=== PATIENT | female | born 1945 | race Caucasian/White ===

== ENCOUNTER 2017-02-18 08:57 | Inpatient (IN) | payer OTHER ==
[2017-02-10 09:12] VITALS: BMI 32.0
--- NOTE | 2017-02-10 09:47 | PAT Medication Instructions ---
Service Date Feb 10, 2017. Current Home Medication List Doxycycline (Monohydrate) (Doxycycline), 100 MG PO BID Losartan Potassium (Losartan Potassium), 25 MG PO QAM Metformin Hcl (Glucophage), 1,000 MG PO 5PM Metformin Hcl (Glucophage), 500 MG PO QAM Omeprazole (Cvs Omeprazole), 20 MG PO QAM Pravastatin Sodium (Pravastatin Sodium), 1 TAB PO HS Tramadol (Ultram), 100 MG PO BID PRN for Pain Medication Instructions For Your Scheduled Surgery Doxycycline (Monohydrate) (Doxycycline), 100 MG PO BID (to completed prior to surgery) - Hold the following medications 48 hours prior to surgery: Metformin Hcl (Glucophage), 1,000 MG PO 5PM Metformin Hcl (Glucophage), 500 MG PO QAM - Hold the following medications the morning of surgery: Losartan Potassium (Losartan Potassium), 25 MG PO QAM - Take the following medications the morning of surgery with a sip of water: Tramadol (Ultram), 100 MG PO BID PRN for Pain (okay to take up to 4 hours prior to surgery if needed) Omeprazole (Cvs Omeprazole), 20 MG PO QAM - Take the following medications as scheduled the night before surgery: Tramadol (Ultram), 100 MG PO BID PRN for Pain (if needed) Pravastatin Sodium (Pravastatin Sodium), 1 TAB PO HS If you have any questions please call us at [phone] or [phone] or [phone]
[2017-02-10 10:50] LABS: BASO % 0.7 %; BASO ABS # 0.04 K/uL (0-0.2); COMPLETE YES; EOS % 1.8 %; HEMATOCRIT 40.9 % (37-47); IG% 0.2 %; LYMPH % 31.8 %; LYMPH ABS # 1.79 K/uL (1.2-3.4); MEAN CELL VOLUME 87.6 fL (80-100); MEAN CORPUSCULAR HEMOGLOBIN 28.5 pg (25-34); MEAN CORPUSCULAR HGB CONC 32.5 g/dl (32-36); MEAN PLATELET VOLUME 10.8 fL (7.4-10.4); MONO % 6.4 %; NEUT % 59.1 %; PLATELET COUNT 194 K/uL (130-400); RED BLOOD COUNT 4.67 M/uL (4.2-5.4); WHITE BLOOD COUNT 5.63 K/uL (4.8-10.8)
[2017-02-10 10:56] LABS: BUN/CREATININE RATIO 17.8 (10-20); CALCIUM 9.6 mg/dl (8.5-10.1); CREATININE 0.93 mg/dl (0.60-1.20); POTASSIUM 4.5 mmol/L (3.5-5.1)
[2017-02-10 11:03] LABS: PROTHROMBIN TIME (PATIENT) 10.7 SECONDS (9.0-12.0)
--- NOTE | 2017-02-10 11:12 | DIAGNOSTIC IMAGING REPORT ---
CHEST PREADMISSION(PA/LAT) CLINICAL HISTORY: Preoperative chest COMPARISON STUDY: May 2011 FINDINGS: The cardiac and mediastinal contours are normal. There is no evidence of focal pulmonary consolidation. There is no evidence of failure. No pleural effusions are visualized.[ IMPRESSION: No active disease in the chest. Electronically signed by: Reji Blunt M.D. 02/10/2017 11:11 AM Dictated Date/Time: 02/10/2017 11:10 AM
[2017-02-10 11:20] LABS: MANUAL MICROSCOPIC REQUIRED? YES; URINE APPEARANCE CLEAR (CLEAR); URINE BILIRUBIN NEG (NEG); URINE COLOR YELLOW; URINE NITRITE NEG (NEG); URINE PH 5.5 (4.5-7.5); UROBILINOGEN NEG (NEG)
[2017-02-10 11:22] LABS: REVIEW REQ? NO
[2017-02-10 11:39] LABS: URINE BACTERIA 1+ (NEG); URINE RBC 0-4 /hpf (0-4)
--- NOTE | 2017-02-17 15:50 | HISTORY & PHYSICAL EXAMINATION ---
DATE OF ADMISSION: 02/18/2017 CHIEF COMPLAINT: Rotator cuff arthropathy of the right shoulder. HISTORY OF PRESENT ILLNESS: Vanessa is a pleasant 71-year-old female whom I have been treating for rotator cuff arthropathy in both of her shoulders. I have given her multiple injections. The right one has been more symptomatic than the left. She has gotten to the point where the injections are no longer helping and her shoulder is becoming more symptomatic. It hurts her when she does any motions out away from her body and she is having trouble sleeping at night. After extensive discussions with her and her family, she has elected to proceed with a reverse right shoulder arthroplasty. PAST MEDICAL HISTORY: Significant for hypertension, hyperlipidemia, diabetes, osteoarthritis and obesity. MEDICATIONS: Include doxycycline 100 mg twice a day, losartan 25 mg daily, Glucophage 500 mg in the morning, and Glucophage 1000 mg in the evening, omeprazole 20 mg in the morning, pravastatin 40 mg at night, Ultram 100 mg twice a day as needed. PAST SURGICAL HISTORY: Significant for bilateral knee replacements by Dr. Schultz. ALLERGIES: None. FAMILY HISTORY: Noncontributory. SOCIAL HISTORY: She denies any tobacco, alcohol or IV drug use. REVIEW OF SYSTEMS: She complains of bilateral shoulder pain, right worse than left. All other pertinent review of systems are negative. PHYSICAL EXAMINATION: GENERAL: She is awake, alert and oriented x3. She is in no apparent distress. She is very pleasant. HEAD, EYES, EARS, NOSE, AND THROAT: Pupils are equal, round and reactive to light. Extraocular motion intact. Oral mucosa is pink and moist. HEART: Regular rate per radial pulse. LUNGS: Rin symmetrically bilaterally with no audible breath sounds. ABDOMEN: Soft, nontender, nondistended. MUSCULOSKELETAL: On physical examination of her right shoulder she has about 140 degrees of forward elevation and abduction. She has 3/5 muscle strength to full can testing and 4/5 muscle strength with external rotation. Negative bear hug and negative belly press test. She is tender to palpation over the anterior glenohumeral joint line and in the subacromial space. X-rays of the right shoulder do reveal superiorly migrated humeral head and advanced osteoarthritis. There is joint space narrowing and osteophyte formation. IMPRESSION: Rotator cuff arthropathy of the right shoulder. PLAN: Will proceed with a Biomet comprehensive reverse right shoulder arthroplasty. Postoperatively, she will be put in an arm sling and kept overnight for postoperative medical management.
[2017-02-18] VITALS (11 sets, daily range): BP systolic 118–162; BP diastolic 64–87; PULSE 49–63; TEMP 36.4–36.7; O2SAT 94–100; Ht 160 cm; Wt 83.6 kg
[~2017-02-18] VITALS: Ht 160 cm; Wt 83.6 kg
[2017-02-18] MEDS: TRANEXAMIC ACID INJ 1,000 MG in SODIUM CHLORIDE 0.9% 100ML 100 ML IV SCH ×2 (06:30→10:33)
[~2017-02-18 08:57] MED LIST: ACETAMINOPHEN 500 MG TAB PO SCH; CEFAZOLIN 2000 MG/60 ML D5W 60 ML IV SCH; CZR25 PO; DOXY-300 PO; FAMOTIDINE 20 MG TAB PO SCH; GABAPENTIN 300 MG CAP PO SCH; LACTATED RINGER'S 1000ML 1,000 ML IV SCH; LACTATED RINGER'S 1000ML IV SCH; METF-384 PO; OMEP20TA40 PO; PRAV40TA2 PO; ROPIVACAINE 5MG/ML 30 ML 150 MG, BUPIVACAINE/EPINEPHR 0.5% MPF 30 ML, KETOROLAC TROMETH... INFIL SCH; TRAM-10 PO
[2017-02-18] MEDS ORDERED: ROPIVACAINE 0.5% 5 MG/ML 30 ML VIAL ONE (09:07)
--- NOTE | 2017-02-18 09:20 | History & Physical Bridge Note ---
H&P Re-Evaluation Bridge Note: I have examined the patient, reviewed the History & Physical and in the interval since the performance of the History & Physical I have noted the following changes of clinical significance: No changes noted
[2017-02-18] MEDS ORDERED: ONDANSETRON INJ 2 MG/ML 2 ML VIAL IV PRN ×2 (09:45→13:15)
[2017-02-18] MEDS ORDERED: FENTANYL CITRATE INJ 50 MCG/1 ML 2 ML VIAL IV PRN (09:45)
[2017-02-18] MEDS ORDERED: PROMETHAZINE HCL INJ 12.5 MG in SODIUM CHLORIDE 0.9% 50ML 50 ML IV PRN (09:45)
[2017-02-18] MEDS ORDERED: ATROPINE SULFATE 0.1 MG/ML 5ML SYR IV PRN (09:45)
[2017-02-18] MEDS ORDERED: HYDROmorphone INJ 1 MG/ML SYR IV PRN (09:45)
[2017-02-18] MEDS ORDERED: EpHEDrine SULFATE INJ 50 MG/ML AMP IV PRN (09:45)
[2017-02-18] MEDS ORDERED: FENTANYL CITRATE INJ 50 MCG/1 ML 2 ML VIAL ONE (10:06)
[2017-02-18] MEDS ORDERED: MIDAZOLAM HCL 1 MG/ML 2ML VIAL ONE (10:06)
[2017-02-18] MEDS ORDERED: ORTHO JOINT ANESTHETIC ONE (10:40)
[2017-02-18] MEDS ORDERED: BACITRACIN 50000 UNIT VIAL ONE (10:40)
[2017-02-18] MEDS ORDERED: GLYCOPYRROLATE INJ 0.2 MG/ML VIAL ONE (12:02)
[2017-02-18] MEDS ORDERED: PROPOFOL IV EMULSION 10 MG/ML 20 ML VIAL IV ONE (12:02)
[2017-02-18] MEDS ORDERED: ROCURONIUM BROMIDE 10 MG/ML 5 ML VIAL ONE (12:02)
[2017-02-18] MEDS ORDERED: NEOSTIGMINE METHYLSULFATE 5 MG/5 ML SYR ONE (12:02)
[2017-02-18] MEDS ORDERED: DEXAMETHASONE SOD INJ 4 MG/ML VIAL ONE (12:16)
[2017-02-18] MEDS ORDERED: ONDANSETRON INJ 2 MG/ML 2 ML VIAL ONE (12:16)
[2017-02-18] MEDS ORDERED: PHARMACY GLYCEMIC MGMT CONSULT STA (13:14)
--- NOTE | 2017-02-18 13:14 | [facility] Post Operative Brief Note ---
Immediate Operative Summary Operative Date Feb 18, 2017. Pre-Operative Diagnosis Rotator cuff arthropathy of the right shoulder Post-Operative Diagnosis Rotator cuff arthropathy of the right shoulder Procedure(s) Performed Right Reverse Total Shoulder Arthroplasty Surgeon Dr. Celestin Hat Checker Surgeon(s) Torsten Puente PA-C Estimated Blood Loss 100 mL Findings as above Specimens A: Right Humeral Head Complication(s) None Disposition Recovery Room / PACU
[2017-02-18] MEDS ORDERED: MoRPHine SULFATE 2 MG/ML CARP IV PRN (13:15)
[2017-02-18] MEDS ORDERED: BISACODYL 10 MG SUPP PR PRN (13:15)
[2017-02-18] MEDS ORDERED: GLUCOSE 10 TABS/TUBE PO PRN (13:15)
[2017-02-18] MEDS ORDERED: NALOXONE HCL 0.4 MG/1 ML VIAL/CARP IV PRN (13:15)
[2017-02-18] MEDS ORDERED: METOCLOPRAMIDE HCL INJ 5 MG/ML 2 ML VIAL IV PRN (13:15)
[2017-02-18] MEDS ORDERED: DEXTROSE 50% 50 ML SYR IV PRN (13:15)
[2017-02-18] MEDS ORDERED: GLUCOSE 40% GEL 15 GM TUBE PO PRN (13:15)
[2017-02-18] MEDS ORDERED: GLUCAGON FOR INJ 1 MG VIAL SQ PRN (13:15)
[2017-02-18] MEDS ORDERED: MAGNESIUM HYDROXIDE SUSP 30 ML UDC PO PRN (13:15)
[2017-02-18] MEDS ORDERED: SOD PHOSPHATE/SOD BIPHOSPHATE ENEMA 132 ML BTL PR PRN (13:15)
--- NOTE | 2017-02-18 13:56 | DIAGNOSTIC IMAGING REPORT ---
RIGHT SHOULDER MIN 2 VIEWS ROUTINE CLINICAL HISTORY: Status post right shoulder surgery. COMPARISON: None FINDINGS: Alignment of the right shoulder arthroplasty is anatomic. There is no fracture or unexpected radiopaque foreign body. Surgical drain is in place. IMPRESSION: Expected findings following right shoulder arthroplasty Electronically signed by: Alphonse Benito M.D. 02/18/2017 1:55 PM Dictated Date/Time: 02/18/2017 1:54 PM
--- NOTE | 2017-02-18 13:57 | Anesthesiology Progress Note ---
Anesthesia Post Op Note Date & Time Feb 18, 2017 at 13:57 Vital Signs Pain Intensity: 0 Vital Signs Past 12 Hours Date Time Temp Pulse Resp B/P (MAP) Pulse Ox O2 Delivery O2 Flow Rate FiO2 02/18/17 13:48 50 14 02/18/17 13:48 50 14 100 02/18/17 13:46 156/63 02/18/17 13:43 52 14 100 02/18/17 13:43 52 14 02/18/17 13:42 149/55 02/18/17 13:38 53 13 100 02/18/17 13:38 53 13 02/18/17 13:37 53 13 02/18/17 13:37 53 13 100 02/18/17 13:37 53 13 02/18/17 13:37 53 13 100 02/18/17 13:36 148/63 02/18/17 13:36 148/63 02/18/17 13:32 51 17 145/56 100 02/18/17 13:32 52 17 02/18/17 13:32 52 17 02/18/17 13:32 51 17 145/56 100 02/18/17 13:27 51 13 02/18/17 13:27 51 13 02/18/17 13:27 51 13 100 02/18/17 13:27 51 13 100 02/18/17 13:26 155/67 02/18/17 13:26 155/67 02/18/17 13:23 146/53 02/18/17 13:23 146/53 02/18/17 13:22 54 14 99 02/18/17 13:22 36.0 52 14 146/53 100 Mask 10 02/18/17 13:22 54 14 02/18/17 13:22 54 14 99 02/18/17 13:22 54 14 02/18/17 09:36 36.6 60 16 148/87 99 Room Air Notes Mental Status: alert / awake / arousable, participated in evaluation Pt Amnestic to Procedure: Yes Nausea / Vomiting: adequately controlled Pain: adequately controlled Airway Patency, RR, SpO2: stable & adequate BP & HR: stable & adequate Hydration State: stable & adequate Anesthetic Complications: no major complications apparent
[2017-02-18] MEDS ORDERED: PHARMACY GLYCEMIC MGMT CONSULT SCH (14:00)
--- NOTE | 2017-02-18 14:09 | Pharmacy Progress Note ---
Glycemic Control Intl Consult Date of Service Feb 18, 2017. Scope Glycemic Pharmacist consulted by Dr Celestin on 02/18/17 for glycemic control and to write orders per [facility] inpatient glycemic control protocol Objective Weight (Kilograms): 83.60 Accuchecks BSG (last 24hrs): Test 02/18/17 09:21 02/18/17 13:25 Bedside Glucose 108 mg/dl (70-90) 142 mg/dl (70-90) Recent Pertinent Medications Outpatient Anti-diabetic Regimen: * Metformin 500mg PO QAM + Metformin 1,000mg PO QPM Risk Factors for Insulin Resistance: * Steroids pre/intra-op * Recent Surgery * Diet Assessment & Plan ASSESSMENT: * 71yo T2DM female with unknown degree of outpatient control. Will order A1c with AM labs tomorrow per protocol * Pt is maintained on oral antidiabetic agents as an outpatient * Oral agents are not recommended for inpatient use d/t drug interactions, changing PO intake, and difficulty titrating for acute hyper/hypoglycemia. ADA recommends re-initiating outpatient oral agents 1-2 days prior to discharge if/ when appropriate if they were held on admission. * Will hold oral agents for admission and utilize SQ basal bolus insulin regimen which is the recommended regimen for inpatient glycemic control. * Will initiate weight based insulin dosing for insulin judi patient and titrate based on BSG trends. * Basal insulin may not be necessary based on minimal outpatient agents and pre -op BSGs * ADA & AACE recommend a goal blood sugar range 140-180 mg/dl for the majority of critically ill & non-critically ill patients. However, more stringent targets may be selected in individual cases. Will utilize more stringent goal of 110-140mg/dl based on patient age & comorbidities. Additionally, tighter glycemic control is warranted to facilitate wound/infection healing. PLAN FOR INPATIENT GLYCEMIC CONTROL: * Holding outpatient oral diabetes medications * Resume {metformin 500mg PO QAM + 1,000mg PO QPM} POD#1 with dinner provided PO intake is adequate and renal function at baseline * Basal insulin * None needed. Will start low dose for persistent hyperglycemia {BSG > 180} * Bolus insulin * NovoLog per scale ACHS or Q6hrs while NPO * Goal Range: Low 110 mg/dL - High 140 mg/dL * Correction Factor: 30 mg/dL/unit * Nutritional / Prandial insulin per carb ratio of 1 unit per 9 grams CHO consumed * D/C carb ratio when metformin is started 7 PM * Please note that the plan above was derived based on current level of insulin resistance and hospital stress. These recommendations are appropriate for inpatient admission only. Plan of care upon discharge will need to be reassessed to avoid potential outpatient hypo/hyperglycemia. Thank you.
[2017-02-18] MEDS: POTASSIUM CHLORIDE INJ 10 MEQ in SODIUM CHLORIDE 0.9% 1000ML 1,000 ML IV SCH (15:07)
[2017-02-18] MEDS: ACETAMINOPHEN IV 1,000 MG in EMPTY BAG 0 ML IV SCH ×2 (15:56→23:36)
--- NOTE | 2017-02-18 15:56 | OPERATIVE REPORT ---
DATE OF OPERATION: 02/18/2017 PREOPERATIVE DIAGNOSIS: Rotator cuff arthropathy of the right shoulder. POSTOPERATIVE DIAGNOSIS: Same. PROCEDURE: Reverse right total shoulder arthroplasty. SURGEON: Dr. Torsten Celestin. AVIONICS MANAGER: Torsten Christopher PA-C whose assistance was necessary for retraction. ANESTHESIA: General with a right interscalene nerve block. COMPLICATIONS: None. CONDITION: Stable to PACU. IMPLANTS USED: I used a Biomet comprehensive reverse right total shoulder arthroplasty with a 25 mm mini baseplate, a 25 mm central screw, 2 peripheral locking screws, a 36 mm standard eccentric glenosphere, a 13 mm mini stem, a standard humeral tray and a standard humeral bearing. INDICATIONS: Vanessa is a pleasant 71-year-old female who presented to my office with chronic right shoulder pain. X-rays and clinical examination were diagnostic for rotator cuff arthropathy of the right shoulder. After failing conservative treatment, she elected to undergo a reverse right total shoulder arthroplasty. OPERATION AND FINDINGS: On 02/18/2017 she arrived at [facility] for the above procedure. She was seen in the preoperative holding area and the operative extremity was identified and signed. She was then given a preoperative antibiotic and a right interscalene nerve block. She was taken back to the operating room, laid on the table in supine position and put under general anesthesia. She was then put into the beachchair position. The right shoulder was prepped and draped in sterile fashion. Time-out was done and the patient and operative extremity was properly identified. A deltopectoral approach was used. Dissection was taken down through the fascia. The biceps tendon has already been traumatically tenotomized. The anterior shoulder was exposed. The subscapularis was tenotomized off the lesser tuberosity. The proximal humerus was exposed. Sequential reaming up to a size 13 reamer was done. Off that reamer, a proximal humeral resection guide was placed and the proximal humerus was resected at 135 degrees of inclination and 20 degrees of retroversion. The glenoid was then exposed. Time was spent doing a complete circumferential capsular and labral release. A guide pin was placed in the inferior aspect of the glenoid at 10 degrees of inclination. The 25 mm mini base plate was then reamed and the final baseplate was impacted into place. A single central screw was placed followed by its superior and inferior locking screw. A 36 mm eccentric glenosphere was then impacted into place. The proximal humerus was then exposed. Sequential broaching up to a size 13 broach was done. Off that broach, a standard humeral bearing was placed. The shoulder was reduced, brought through a full range of motion and felt to be stable. Trials were removed. The final 13 mini stem was impacted into place followed by the standard humeral tray and bearing. The shoulder was reduced, brought through a full range of motion and was felt to be stable. The joint was then irrigated with 3 liters of normal saline solution with bacitracin. Surrounding soft tissues were injected with 100 mL orthopedic pain control cocktail. The subscapularis was tenodesed back to the lesser tuberosity with transosseous FiberWire sutures and [id number] sutures. A drain was placed. The skin was then closed with 2-0 Vicryl and 3-0 V-Loc suture and Prineo dressing. She was then placed in a soft dressing and a regular arm sling. She was then extubated, transferred to a [facility] and taken to the postanesthesia care unit in stable condition. She tolerated the procedure well. I attest to the content of the Intraoperative Record and any orders documented therein. Any exception s are noted below.
[2017-02-18] MEDS: INSULIN ASPART 100 UNITS/ML 3 ML PEN SC SCH ×2 (17:30→20:58)
[2017-02-18] MEDS: KETOROLAC TROMETHAMINE 15 MG/ML VIAL IV. SCH ×2 (18:27→23:30)
[2017-02-18] MEDS: OXYCODONE HCL IR 5 MG TAB (IMMEDIATE RELEASE) PO PRN (20:19)
[2017-02-18] MEDS: DOCUSATE SODIUM 100 MG CAP PO SCH (20:20)
[2017-02-18] MEDS: CEFAZOLIN IV 2,000 MG in DEXTROSE 5% 50ML 50 ML IV SCH (20:56)
[2017-02-18] MEDS ORDERED: PRAVASTATIN SOD 40 MG TAB PO SCH (21:00)
[2017-02-18] MEDS ORDERED: SENNA 8.6 MG TAB PO SCH (21:00)
[2017-02-19] MEDS: POTASSIUM CHLORIDE INJ 10 MEQ in SODIUM CHLORIDE 0.9% 1000ML 1,000 ML IV SCH ×2 (00:31→09:56)
[2017-02-19] MEDS: OXYCODONE HCL IR 5 MG TAB (IMMEDIATE RELEASE) PO PRN ×2 (00:32→06:19)
[2017-02-19 03:58] VITALS: BP 129/66; PULSE 54; TEMP 36.5; O2SAT 97
[2017-02-19] MEDS: CEFAZOLIN IV 2,000 MG in DEXTROSE 5% 50ML 50 ML IV SCH (06:12)
[2017-02-19] MEDS: KETOROLAC TROMETHAMINE 15 MG/ML VIAL IV. SCH (06:12)
[2017-02-19 06:56] LABS: HEMATOCRIT 33.4 % (37-47); MEAN CORPUSCULAR HEMOGLOBIN 28.6 pg (25-34); MEAN CORPUSCULAR HGB CONC 32.9 g/dl (32-36); MEAN PLATELET VOLUME 10.8 fL (7.4-10.4); PLATELET COUNT 153 K/uL (130-400); RED BLOOD COUNT 3.84 M/uL (4.2-5.4); WHITE BLOOD COUNT 10.21 K/uL (4.8-10.8)
[2017-02-19 07:06] VITALS: BP 125/83; PULSE 57; TEMP 36.6; O2SAT 97
[2017-02-19 07:28] LABS: BUN/CREATININE RATIO 14.4 (10-20); CALCIUM 9.3 mg/dl (8.5-10.1); CREATININE 0.84 mg/dl (0.60-1.20); POTASSIUM 4.1 mmol/L (3.5-5.1)
[2017-02-19] MEDS: INSULIN ASPART 100 UNITS/ML 3 ML PEN SC SCH (08:00)
[2017-02-19 08:01] LABS: ESTIMATED AVERAGE GLUCOSE 117 mg/dl; HA1C FLAG Normal (Normal)
[2017-02-19] MEDS: ACETAMINOPHEN IV 1,000 MG in EMPTY BAG 0 ML IV SCH (08:23)
[2017-02-19] MEDS ORDERED: MULTIVITAMIN TAB PO SCH (09:00)
[2017-02-19] MEDS ORDERED: PANTOprazole SOD 40 MG TAB PO SCH (09:00)
[2017-02-19] MEDS ORDERED: LOSARTAN POTASSIUM 25 MG TAB PO SCH (09:00)
[2017-02-19] MEDS ORDERED: TRAM-10 PO (09:02)
--- NOTE | 2017-02-19 09:03 | Discharge Instructions ---
Discharge Instructions Date of Service Feb 19, 2017. Admission Reason for Admission: Right Shoulder Full Thickness Rotator Cuff Tear Discharge Discharge Diagnosis / Problem: Right reverse total shoulder Discharge Goals Goal(s): Decrease discomfort, Improve function Activity Recommendations Activity Limitations: as noted below . Instructions / Follow-Up Instructions / Follow-Up Activity and Therapy Recommendations: * Wear your sling for 3 weeks, unless otherwise instructed. You may remove your sling to shower and to dress, but otherwise, you should be in your sling at all times, including while sleeping * The shoulder replacement is very stable and you can use your hand while in the sling * Physical Therapy should start about 3-5 days from your day of surgery. Therapy will last about 8-12 weeks * You were shown a series of exercises in the hospital. Do these exercises daily including the exercises you were shown in physical therapy. Medications: * Narcotic You will likely be sent home from the hospital with a prescription for the narcotic pain medication that worked best throughout your stay. * Other medications may be prescribed for specific circumstances. If you have any questions, please call the office at . * Resume previous home medications unless otherwise instructed Dressing Care: You will likely have a Prineo dressing covering your incision. This looks like a glued on clear mesh dressing. Do not remove this dressing until you follow- up in my office in 2-3 weeks. Its pretty hard to peel it off. You may leave the Prineo dressing uncovered or cover it if it is draining a little bit. No further dressing care is required Showering: You may shower 3 days from the day of surgery. Leave the Prineo dressing intact and let the soapy shower water run over it. Do not scrub or soak the dressing or the incision. Things To Watch For: * Drainage from the incision site that occurs more than one week after your surgery. * Increased redness at the incision site. * Fever above 102 degrees Fahrenheit. * Unusual chest pain or shortness of breath. * Call [facility] at with any of the above problems Follow-Up Visit: Follow-up with Dr. Celestin 2-3 weeks after your day of surgery. An appointment was probably scheduled when you signed-up for surgery in the office. If you have any questions call Office Instructions: More detailed instructions as well as Frequently Asked Questions were provided in a folder by our office when you signed-up for surgery. Please review these instructions when you get home. If you have any further questions or concerns, please feel free to call the office at [phone] Current Hospital Diet Patient's current hospital diet: Diabetes Type 2 Diet Discharge Diet Recommended Diet: Regular Diet Procedures Procedures Performed: Right Reverse Total Shoulder Arthroplasty Pending Studies Studies pending at discharge: no Laboratory Results Hemoglobin A1c Test 02/19/17 06:17 Range/Units Estimated Average Glucose 117 mg/dl Hemoglobin A1c 5.7 H 4.5-5.6 % Medical Emergencies . Who to Call and When: Medical Emergencies: If at any time you feel your situation is an emergency, please call 911 immediately. . Non-Emergent Contact Non-Emergency issues call your: Surgeon Call Non-Emergent contact if: wound has increased drainage, wound has increased redness . "Provider Documentation" section prepared by Torsten Celestin. . VTE Core Measure Inpt VTE Proph given/why not?: Treatment not indicated
[2017-02-19] MEDS: DOCUSATE SODIUM 100 MG CAP PO SCH (09:07)
--- NOTE | 2017-02-19 09:40 | PROGRESS NOTE ---
DATE: 02/19/2017 DATE: 02/19/2017 CHIEF COMPLAINT: Status post reverse right shoulder arthroplasty postop day #1. PROGRESS: Vanessa was seen and examined at bedside today. Overall, she is doing very well. She said she really has no pain at all in the right shoulder. She was having some difficulty sleeping overnight but has no other complaints. PHYSICAL EXAMINATION: RIGHT SHOULDER: The dressing is clean and dry and the drain is to suction. Her radial, median and ulnar nerves were checked and intact at her wrist. Her axillary nerve was not checked yet. LABORATORY DATA: She has an H&H today of 11.0 and 33.4. Her glucose is 105. Her vital signs are all stable on room air and she is voiding on her own. X-rays postoperatively of the right shoulder show the prosthesis to be in anatomical alignment without any evidence of fracture, dislocation or loosening. IMPRESSION: Status post right reverse shoulder arthroplasty postop day #1. PLAN: At this point, she is doing very well and I am happy with her progress. Her pain is well controlled. She will be seen by physical therapy today. The nursing staff can change the dressing, pull the drain and will discharge her to home later this morning.
[2017-02-19 09:54] VITALS: BP 125/83; PULSE 57; TEMP 36.6; O2SAT 97
--- NOTE | 2017-02-19 10:10 | DISCHARGE SUMMARY ---
DATE OF DISCHARGE: 02/19/2017 DISCHARGE DIAGNOSIS: Rotator cuff arthropathy of the right shoulder. PROCEDURE: Reverse right total shoulder arthroplasty on 02/18/[address] Torsten Celestin. DISCHARGE INSTRUCTIONS: 1. Tramadol 100 mg twice a day as needed for pain. 2. Pravastatin 40 mg at night. 3. Omeprazole 20 mg daily. 4. Metformin 500 mg in the morning and 1000 mg in the evening. 5. Losartan 25 mg daily. 6. Right arm sling for 3 weeks. 7. Follow up with Dr. Celestin in 2 weeks. 8. Call the office of Dr. Celestin with any questions or concerns. HOSPITAL COURSE: Vanessa is a pleasant 71-year-old female who presented to my office with chronic right shoulder pain and weakness. X-rays and clinical examination were diagnostic for rotator cuff arthropathy of the right shoulder. After failing conservative treatment, she elected to undergo a reverse shoulder arthroplasty. On 02/18/2017 she arrived at [facility] and underwent a reverse right shoulder arthroplasty without complications. She had a general anesthetic and a right interscalene nerve block. Postoperatively, she was discharged to general orthopedic floor. Her hospital course was uneventful. On postop day #1, her H&H was stable at 11.0 and 33.4. She was able to participate well with physical therapy and her pain was controlled. The dressing was changed, the drain was pulled and she was subsequently discharged to home with the above instructions.
[2017-02-19 11:07] VITALS: BP 125/71; PULSE 72; O2SAT 98
[2017-02-19] MEDS ORDERED: INSULIN ASPART 100 UNITS/ML 3 ML PEN SC SCH (17:15)
[2017-02-19] MEDS ORDERED: METFORMIN HCL 500 MG TAB PO SCH (17:45)
[2017-02-20] MEDS ORDERED: METFORMIN HCL 500 MG TAB PO SCH (08:30)
== END 2017-02-19 11:07 | disposition home or self-care (01) | DRG 483 ==
LOC: C.ACU 08:57 → C.3E 09:25 → UNDOADMIN 13:18 → C.3E 13:18 → ENRESERV 13:59 → UNDODISIN 02-19 11:07
PROVIDERS: ADMIT Orthopaedic Surgery; ATTEND Orthopaedic Surgery
PROC: 0RRJ00Z Replacement of Right Shoulder Joint with Reverse Ball and Socket Synthetic Substitute, Open Approach (ICD-10-PCS; principal; 2017-02-18 11:30)
DX: M75.101 Unspecified rotator cuff tear or rupture of right shoulder, not specified as traumatic (principal); I10 Essential (primary) hypertension; E78.5 Hyperlipidemia, unspecified; E11.9 Type 2 diabetes mellitus without complications; E66.9 Obesity, unspecified; Z96.653 Presence of artificial knee joint, bilateral; Z68.32 Body mass index [BMI] 32.0-32.9, adult; Z79.899 Other long term (current) drug therapy

== ENCOUNTER 2018-11-03 08:44 | Inpatient (IN) ==
--- NOTE | 2018-10-23 16:57 | PAT Medication Instructions ---
Medication Instructions Date of Service October 23, 2018 Home Medications duloxetine 30 mg PO QPM losartan 25 mg PO QAM metformin 500 mg PO BIDM omeprazole 40 mg PO QAM rosuvastatin [Crestor] 10 mg PO QPM tramadol 100 mg PO BID PRN DO NOT take the morning of surgery losartan 25 mg PO QAM metformin 500 mg PO BIDM Take morning of surgery With a small sip of water, OTHERWISE NOTHING TO EAT OR DRINK AFTER MIDNIGHT: metformin 500 mg PO BIDM tramadol 100 mg PO BID NEEDED (Stop 4 hours before surgery) Take evening before surgery duloxetine 30 mg PO QPM metformin 500 mg PO BIDM rosuvastatin [Crestor] 10 mg PO QPM tramadol 100 mg PO BID NEEDED Other Notes If you have any questions please call us at [phone] or [phone] or [phone] or [phone]
--- NOTE | 2018-10-24 09:02 | Anesthesiology Consultation ---
Date of Service October 24, 2018 Assessment & Plan (1) Encounter for pre-operative examination: Chart Review Chart Review: Patient seen in Pre Admission Testing Consults Requested none Teaching & Discussion Pre-Anesthesia Teaching/Discussion Notes: Instructed NPO after midnight before surgery, except medications with 15 cc of water. Medication instructions provided according to the PAT guidelines. History Surgery Operation Date: 11/03/18 13:10 Proposed Procedures p Left Reverse Total Shoulder Arthroplasty - Torsten Celestin DO Height/Weight Height: 5 ft 3 in Weight: 84.6 kg Allergies Allergy/AdvReac Type Severity Reaction Status Date / Time No Known Allergies Allergy Mild Verified 10/19/18 07:59 Medications Home Medications Medication Instructions Recorded Confirmed Last Taken duloxetine 30 mg PO QPM 10/19/18 10/19/18 Unknown losartan 25 mg PO QAM 10/19/18 10/19/18 Unknown metformin 500 mg PO BIDM 10/19/18 10/19/18 Unknown omeprazole 40 mg PO QAM 10/19/18 10/19/18 Unknown rosuvastatin [Crestor] 10 mg PO QPM 10/19/18 10/19/18 Unknown tramadol 100 mg PO BID PRN 10/19/18 10/19/18 Unknown Past Medical History Medical History Diabetes 1.5, managed as type 2 Frequent falls GERD (gastroesophageal reflux disease) Hyperlipidemia Hypertension Osteoarthritis Past Family History Family History Mother FHx: colon cancer Father FHx: colon cancer Brother FHx: colon cancer Sister FHx: colon cancer Past Surgical History Surgical History History of back surgery History of colonoscopy History of partial hysterectomy ovaries remaiin History of right shoulder replacement 02/16/17 - Grade 1 View with MAC#3 and ETT #7.0 placed with DVL on 1st attempt. Atraumatic. Hx of cataract extraction right and left Hx of total knee replacement right and left Past Anesthesia History No Hx of Anesthesia Complications and No Family Hx of Anesthesia Complications History of PONV No Motion Sickness Screening History of Motion Sickness: No Social History Smoking Status: Former smoker Do You Dip or Chew Tobacco: No Smoking End Date: quit 40 yr ago Hx Alcohol Use: No Hx Substance Use: No Exercise / Class Metabolic Activity II 4-5 Yardwork/Stairs/Walk up hill (Own housework. Tends to [place]. Own cooking. Able to climb FOS, but has difficulty due to pain from arthritis. Denies CP or SOB. ) Review of Systems Patient denies chest pain, shortness of breath, dyspnea on exertion, cough, wheezing, palpitations. +joint pain (knees, legs, shoulder, hands, arms, wrists, ankles, etc) +acid reflux (controlled with medications) Physical Exam Vital Signs BP: 151/85 P: 61 R: 16 T: 98.5 SPO2: 98% on RA Constitutional + obese ENMT Mouth: + dentures (full set upper and lower) and + edentulous Thyromental Distance: > or= 3.5 Finger Breadths (4) Mallampati Class: I Neck normal visual inspection, trachea midline and + limited neck extension Respiratory normal respiratory effort Auscultation: lungs clear to auscultation bilaterally Cardiovascular Rate/Rhythm: regular rate and regular rhythm Heart Sounds: no murmur Vessels: no carotid bruit Neurologic moves all extremities Psychiatric Orientation: alert and oriented x 3 Testing Electrocardiogram Date: 10/24/18 Findings: + SB @ (59) and + no change from (02/10/17) Left anterior fascicular block. Chest X-Ray Date: 10/24/18 Findings: + NAD FINDINGS: Right shoulder arthroplasty is noted. Linear density within the lingula is benign. There is extensive mitral annular calcification. The size of the heart is normal. Pulmonary vascularity is normal. There is no consolidation. Lumbar spine fusion hardware is partially imaged. Appearance of the chest is unchanged. There is mild rightward curvature of the thoracic spine. IMPRESSION: No acute cardiopulmonary findings. Stress Test Date: 11/29/12 Type: nuclear (Regadenoson Myoview) IMPRESSION: Non-diagnostic Regadenoson ECG. Laboratory Results 10/24/18 09:29 10/24/18 08:29 Blood Type A Negative 10/24/18 09: Antibody Screen NEGATIVE 10/24/18 09: PT 10.0 Seconds (9.0-12.0) 10/24/18 09: INR 1.0 (0.9-1.1) 10/24/18 09: APTT 24.0 Seconds (21.0-31.0) 10/24/18 09:29
--- NOTE | 2018-10-24 10:01 | XRay Report ---
XR chest Pre-admission PA/Lat CLINICAL HISTORY: Preoperative evaluation. COMPARISON STUDY: Chest radiograph February 10, 2017. FINDINGS: Right shoulder arthroplasty is noted. Linear density within the lingula is benign. There is extensive mitral annular calcification. The size of the heart is normal. Pulmonary vascularity is no rmal. There is no consolidation. Lumbar spine fusion hardware is partially imaged. Appearance of the chest is unchanged. There is mild rightward curvature of the thoracic spine. IMPRESSION: No acute cardiopulmonary findings. Electronically signed by: Alphonse Benito M.D. 10/24/2018 9:59 AM
[2018-10-24 10:34] LABS: Basophils # (auto) 0.07 K/uL (0-0.2); Basophils % (auto) 1.2 %; Eosinophils # (auto) 0.21 K/uL (0-0.5); Eosinophils % (auto) 3.7 %; Hematocrit (blood only) 36.5 % (37-47); Hemoglobin 11.6 g/dL (12.0-16.0); Immature Granulocytes # (auto) 0.02 K/uL (0.00-0.02); Immature Granulocytes % (auto) 0.3 %; Lymphocytes # (auto) 1.88 K/uL (1.2-3.4); Lymphocytes % (auto) 32.9 %; Mean Corpuscular Hgb Conc 31.8 g/dL (32-36); Mean Corpuscular Volume 85.1 fL (80-100); Mean Platelet Volume 10.2 fL (7.4-10.4); Monocytes # (auto) 0.58 K/uL (0.11-0.59); Monocytes % (auto) 10.1 %; Neutrophils # (auto) 2.96 K/uL (1.4-6.5); Neutrophils % (auto) 51.8 %; Platelet Count 208 K/uL (130-400); RDW Coefficient of Variation 14.3 % (11.5-14.5); RDW Standard Deviation 44.2 fL (36.4-46.3); Red Blood Count 4.29 M/uL (4.2-5.4); White Blood Count 5.72 K/uL (4.8-10.8)
[2018-10-24 10:41] LABS: BUN Creatinine Ratio 18.9 (10-20); Calcium 9.2 mg/dl (8.5-10.1); Est GFR (African American) 71.5; Est GFR (Non-African American) 61.7; Potassium 5.3 mmol/L (3.5-5.1)
[2018-10-24 10:43] LABS: Partial Thromboplastin Ratio 0.9
--- NOTE | 2018-11-01 07:32 | History & Physical Report ---
Date of Service November 01, 2018 Assessment & Plan (1) Rotator cuff arthropathy of left shoulder: We will proceed with a left reverse shoulder arthroplasty. Postoperatively she will be placed in a sling and kept overnight at the hospital for postoperative medical management. She plans to use energy physical therapy upon discharge. Present on Admission?: Yes History of Present Illness Chief Complaint: Rotator cuff arthropathy of the left shoulder Primary Care Provider: Will Mendez is a pleasant 72-year-old female who I did a right reverse shoulder arthroplasty on in the past. She has done very well with that. Unfortunately she is been dealing with chronic increasing left shoulder pain. I diagnosed her with rotator cuff arthropathy of the left shoulder. I have given her multiple injections. Injections are no longer helping. Her shoulder pain is now unbearable. She has elected to proceed with a reverse left shoulder arthroplasty. Allergies Allergy/AdvReac Type Severity Reaction Status Date / Time No Known Allergies Allergy Mild Verified 10/19/18 07:59 Home Medications Home Medications Medication Instructions Recorded Confirmed Type duloxetine 30 mg PO QPM 10/19/18 10/19/18 History losartan 25 mg PO QAM 10/19/18 10/19/18 History metformin 500 mg PO BIDM 10/19/18 10/19/18 History omeprazole 40 mg PO QAM 10/19/18 10/19/18 History rosuvastatin [Crestor] 10 mg PO QPM 10/19/18 10/19/18 History tramadol 100 mg PO BID PRN 10/19/18 10/19/18 History Past Med/Surg History Medical History Diabetes 1.5, managed as type 2 Frequent falls GERD (gastroesophageal reflux disease) Hyperlipidemia Hypertension Osteoarthritis Surgical History History of back surgery History of colonoscopy History of partial hysterectomy ovaries remaiin History of right shoulder replacement 02/16/17 - Grade 1 View with MAC#3 and ETT #7.0 placed with DVL on 1st attempt. Atraumatic. Hx of cataract extraction right and left Hx of total knee replacement right and left Family History Mother FHx: colon cancer Father FHx: colon cancer Brother FHx: colon cancer Sister FHx: colon cancer Social History Preferred Language: Serbian Communication Ability: Effective Beliefs That Will Affect Care: None Current Living Situation: Spouse Other Information That Helps Us Care for You: No Feels Safe at Home: Yes Safety Concerns: Feels Safe At This Time Smoking Status: Former smoker Hx Alcohol Use: No Hx Substance Use: No Review of Systems All systems reviewed & are unremarkable except as noted in HPI & below Physical Exam Constitutional: WD/WN, vitals as above Eyes: PERRL, conjunctivae normal, anicteric sclerae ENMT: external ear and nose normal, oropharynx normal Neck: trachea midline, no thyromegaly Respiratory: normal respiratory effort Cardiovascular: RRR, no murmur, no edema Gastrointestinal (Abdomen): normal bowel sounds, soft, nontender, no hepatosplenomegaly Musculoskeletal: Physical examination of the left shoulder reveals decreased range of motion and significant weakness. There is tenderness palpation along the anterior glenohumeral joint line. The right upper extremity is neurovascularly intact. Psychiatric: A+Ox3, euthymic affect Results & Data Diagnostic Findings Radiographs of the left shoulder show some signs of osteoarthritis with blunting of the greater tuberosity and some superior migration of the humeral head on the glenoid.
[~2018-11-03 08:44] MED LIST changes: +BUPIVACAINE 0.5 % 5 MG/1 ML PF 10ML VIAL ONE; -CEFAZOLIN 2000 MG/60 ML D5W 60 ML IV SCH; +CEFAZOLIN 2000MG 2,000 MG/15 ML SYR IV SCH; -CZR25 PO; -DOXY-300 PO; -GABAPENTIN 300 MG CAP PO SCH; +GABAPENTIN 300 MG PO SCH; -LACTATED RINGER'S 1000ML 1,000 ML IV SCH; -LACTATED RINGER'S 1000ML IV SCH; +LR 15ML/HR IV SCH; +LR 60ML/HR IV SCH; -METF-384 PO; -OMEP20TA40 PO; -PRAV40TA2 PO; +ROPIVACAINE 0.5% HCL/PF 150 MG, BUPIVACAINE 0.5% MPF 30 ML, EPINEPHrine 30MG/30ML (OR U... INFIL SCH; -ROPIVACAINE 5MG/ML 30 ML 150 MG, BUPIVACAINE/EPINEPHR 0.5% MPF 30 ML, KETOROLAC TROMETH... INFIL SCH; -TRAM-10 PO; +TRANEXAMIC ACID 1,000 MG **IV Intra-op IV SCH; +TRANEXAMIC ACID 1,000 MG **IV Pre-op IV SCH
[2018-11-03] MEDS ORDERED: fentaNYL citrate 100 MCG/2 ML VIAL ONE (10:24)
[2018-11-03] MEDS ORDERED: MIDAZOLAM HCL 1 MG/ML 2ML VIAL ONE (10:24)
[2018-11-03] MEDS ORDERED: PROPOFOL IV EMULSION 10 MG/ML 20 ML VIAL IV ONE (10:25)
[2018-11-03] MEDS ORDERED: LIDOCAINE HCL 2% 2 ML VIAL/AMP(20MG/ML) INFIL ONE (10:25)
[2018-11-03] MEDS ORDERED: ROCURONIUM BROMIDE 10 MG/ML 5 ML VIAL ONE (10:25)
[2018-11-03] MEDS ORDERED: DEXAMETHASONE SOD INJ 4 MG/ML VIAL ONE (10:25)
[2018-11-03] MEDS ORDERED: ONDANSETRON INJ 2 MG/ML 2 ML VIAL ONE (10:25)
--- NOTE | 2018-11-03 10:27 | History & Physical Bridge Note ---
Date of Service November 03, 2018 History & Physical Bridge Note I have examined the patient, reviewed the History & Physical and in the interval since the performance of the History & Physical I have noted the following changes of clinical significance: no changes noted
[2018-11-03 10:43] LABS: Calcium 8.9 mg/dl (8.5-10.1); Creatinine Clr Calc Pharmacy 53.7 ml/min; Est GFR (African American) 69.7; Est GFR (Non-African American) 60.1; Potassium 4.1 mmol/L (3.5-5.1)
[2018-11-03] MEDS ORDERED: KETOROLAC 30 MG/ML VIAL IV PRN (11:11)
[2018-11-03] MEDS ORDERED: HYDROmorphone INJ 1 MG/ML SYRINGE IV PRN (11:11)
[2018-11-03] MEDS ORDERED: ATROPINE SULFATE 0.1 MG/ML 10ML SYR IV PRN (11:11)
[2018-11-03] MEDS ORDERED: ONDANSETRON INJ 2 MG/ML 2 ML VIAL IV PRN ×2 (11:11→14:29)
[2018-11-03] MEDS ORDERED: POVIDONE-IODINE OP SOLN 30 ML BTL OP SCH (12:30)
--- NOTE | 2018-11-03 13:13 | Operative Report ---
Post Operative Report Pre & Post Diagnosis Operation Date: 11/03/18 11:20 Pre-Op Diagnosis: Rotator Cuff Arthropathy of Left Shoulder Post-Op Diagnosis: Rotator Cuff Arthropathy of Left Shoulder Procedure Operation Date: 11/03/18 11:20 Actual Procedures p Left Reverse Total Shoulder Arthroplasty(Left) - Torsten Celestin DO Surgeon Torsten Celestin DO Media Theorist And Author Of Torsten Christopher PAC Estimated Blood Loss 200 Findings Consistent with Post-Op Diagnosis Specimens Left humeral head Complications none Disposition Disposition: Recovery Room Indications Vanessa is a pleasant 73-year-old female who presented my office with complaints of chronic increasing left shoulder pain. X-rays and clinical examination were diagnostic for rotator cuff arthropathy of the left shoulder. After failing conservative treatment, she elected to proceed with a left reverse shoulder arthroplasty. She had a right reverse shoulder arthroplasty done several years ago and did very well with that. Description of Procedure Implants used: I used a [employer] Comprehensive reverse total shoulder arthroplasty system with a size 13 press fit mini humeral stem, a standard humeral tray and a standard humeral bearing, a 25 mm mini baseplate with a 6.5 mm central screw and superior and inferior locking screws, and a size 36 mm eccentric glenosphere. The patient arrived at [facility] for the above procedure. There were seen in the preoperative holding area and the operative extremity was identified and signed. They were given a preoperative antibiotic and an interscalene nerve block. They were taken back to the operating room, laid on table in supine position, and put under general anesthesia. They were then put into the beachchair position. The shoulder was then prepped and draped in sterile fashion. A timeout was done and the patient in the operative extremity was properly identified. A deltopectoral approach was used. Dissection was taken down through the fascia and the deltoid was retracted laterally and the conjoined tendon was retracted medially. The anterior shoulder was exposed. The long head of the biceps tendon was tenodesed to the upper border of the pectoralis major. The subscapularis was then released off the lesser tuberosity with a centimeter of cuff tissue remaining. The inferior capsule was released and the humeral head was dislocated. A canal finding reamer was sent down the center of the humeral canal. Sequential reaming up to a size 13 reamer was done. Off that reamer, a proximal humeral resection guide was placed. The proximal humerus was resected at 135 of inclination and 25 of retroversion. Osteophytes were then removed and the glenoid was exposed. Time was spent doing a complete capsular and labral release. The glenoid guide was then placed in the inferior aspect of the glenoid. A 3.2 mm Steinmann pin was then placed into the glenoid vault at 10 of inclination. The glenoid baseplate was then reamed. The final size 25 mm mini baseplate was then impacted in the place. A 6.5 mm central screw was then placed followed by superior and inferior locking screws. A 36 mm eccentric glenoid sphere was then impacted into place. Surrounding soft tissues were then injected with 100 cc an orthopedic pain control cocktail. The proximal humerus was then exposed. Sequential broaching of the humerus up to a size 13 broach was done. Off that broach a standard humeral tray was trialed. The shoulder was then reduced, brought through a full range of motion and felt to be stable. The shoulder was then dislocated and the broach was removed. The final size 13 mini press-fit humeral stem was then impacted into place. A standard humeral bearing was then snapped onto a standard humeral tray and the ring-lock mechanism was engaged. The humeral tray was then impacted onto the humeral stem. The shoulder was once again reduced, brought through a full range of motion and felt to be stable. The subscapularis was then tenodesed back to the lesser tuberosity with transosseous FiberWire sutures and side to side sutures with the arm in 45 of external rotation. A dilute betadyne lavage was then done for 3 minutes. The joint was then irrigated with normal saline solution. Hemostasis was obtained. The skin was then closed with 2-0 Vicryl, 3-0V lock suture, and mat. A soft dressing and a regular arm sling was placed. The patient was then extubated and transferred to a hospital bed. They were taken to the postanesthesia care unit in stable condition. They tolerated the procedure well. I attest to the content of the Intraoperative Record and any orders documented therein. Any exceptions are noted below.
[2018-11-03] MEDS ORDERED: GLYCOPYRROLATE 0.2 MG/ML VIAL ONE (13:40)
[2018-11-03] MEDS ORDERED: NEOSTIGMINE METHYLSULFATE 5 MG/5 ML SYR ONE (13:40)
--- NOTE | 2018-11-03 13:55 | XRay Report ---
XR shoulder LT min 2V routine CLINICAL HISTORY: 73 years-old Female presenting with post op. TECHNIQUE: Frontal and transscapular Y views of the left shoulder were obtained. COMPARISON: Chest x-ray from 10/24/2018. FINDINGS: There has been interval total reverse left shoulder arthroplasty. Overlying skin mat and soft tis alexander emphysema evident. No malalignment or periprosthetic fracture. Mildly low lung volumes with basil ar opacities. IMPRESSION: 1. Expected postsurgical appearance status post total reverse left shoulder arthroplasty. 2. Left atelectasis. Electronically signed by: Austin Saenz M.D. 11/03/2018 1:54 PM
--- NOTE | 2018-11-03 13:58 | Anesthesiology Progress Note ---
Date of Service November 03, 2018 Anesthesia Post Procedure Vital Signs Vital Signs: Temp Pulse Pulse Resp BP BP Pulse Ox 11/03/18 13:55 62 16 136/61 100 11/03/18 13:45 66 18 128/61 100 11/03/18 13:36 36.0 C L 74 14 129/46 L 100 11/03/18 09:12 37.1 C 64 18 171/72 H 99 Pain Intensity Left Shoulder: Pain Intensity: 4 Notes Mental Status: alert / awake / arousable Patient Amnestic to Procedure: Yes Nausea / Vomiting: adequately controlled Pain: adequately controlled Airway Patency, RR, SpO2: stable & adequate BP & HR: stable & adequate Hydration State: stable & adequate Anesthetic Complications: no major complications apparent
[2018-11-03] MEDS ORDERED: METOCLOPRAMIDE HCL INJ 5 MG/ML 2 ML VIAL IV PRN (14:29)
[2018-11-03] MEDS ORDERED: HYDROmorphone INJ 0.5 MG/0.5 ML SYR IV PRN (14:29)
[2018-11-03] MEDS ORDERED: BISACODYL 10 MG SUPP PR PRN (14:29)
[2018-11-03] MEDS ORDERED: NALOXONE HCL 0.4 MG/1 ML VIAL/CARP IV PRN (14:29)
[2018-11-03] MEDS ORDERED: MAGNESIUM HYDROXIDE SUSP 30 ML UDC PO PRN (14:29)
[2018-11-03] MEDS ORDERED: PHARMACY GLYCEMIC MGMT CONSULT SCH (14:40)
[2018-11-03] MEDS: LOSARTAN POTASSIUM 25 MG TAB PO SCH (14:59)
[2018-11-03] MEDS: SODIUM CHLORIDE 0.9% 1000ML 1,000 ML IV SCH ×2 (15:00→23:48)
[2018-11-03] MEDS: CEFAZOLIN 2000MG 2,000 MG/15 ML SYR IV SCH ×2 (15:24→23:39)
[2018-11-03] MEDS: KETOROLAC TROMETHAMINE 15 MG/ML VIAL IV SCH ×2 (15:24→21:13)
--- NOTE | 2018-11-03 15:40 | Pharmacy Report ---
Glycemic Control Consultation - Date of Service November 03, 2018 - Scope Scope: Glycemic Pharmacist consulted by Dr Torsten Christopher PA-C on 11/03/18 for glycemic control and to write orders per [facility] inpatient glycemic control protocol - Objective Weight: 84.1 kg Accuchecks BSG (last 24hrs): 11/03/18 11/03/18 11/03/18 09:04 09:14 10:17 Glucose Cancelled 93 POC Glucose 88 11/03/18 13:46 Glucose POC Glucose 105 H Laboratory Data (last 24hrs): 11/03/18 11/03/18 09:04 10:17 Potassium Cancelled 4.1 Carbon Dioxide Cancelled 28 Anion Gap Cancelled 4.0 Creatinine Cancelled 0.93 Est Cr Clr Drug Dosing Cancelled 53.7 - Recent Pertinent Medications Outpatient Anti-diabetic Regimen: * Metformin 500mg BID Risk Factors for Insulin Resistance: * Steroids: Dexamethasone 4mg IV x 1 intra-op * Infection: Ancef pre- and post-op * Recent Surgery: s/p rotator cuff repair * Diet: T2DM - Assessment & Plan Assessment & Plan: ASSESSMENT: * 73 y/o F admitted for rotator cuff surgery. Current HbA1c unknown, but patient only on metformin as outpatient. BG excellent prior to surgery and most recent BG was 105 mg/dL. * She did receive a single dose of dexamethasone IV x 1. Unsure if she will have significant hyperglycemia later today. Will conservatively dose insulin at this time given lack of clinical data. PLAN FOR INPATIENT GLYCEMIC CONTROL: * Basal insulin * Lantus per scale units SC HS x 1 (0 units if less than 140mg/dL, 10 units if 140mg/dL or higher) * Bolus insulin * NovoLog per scale ACHS or Q6hrs while NPO * Goal Range: Low 110 mg/dL - High 140 mg/dL * Correction Factor: 30 mg/dL/unit * Nutritional / Prandial insulin per carb ratio of 1 unit per 9 grams CHO consumed * Please note that the plan above was derived based on current level of insulin resistance and hospital stress. These recommendations are appropriate for inpatient admission only. Plan of care upon discharge will need to be reassessed to avoid potential outpatient hypo/hyperglycemia. Thank you.
[2018-11-03] MEDS: METFORMIN HCL 500 MG TAB PO SCH (17:58)
[2018-11-03] MEDS: INSULIN ASPART 100 UNITS/ML 3 ML PEN SC SCH ×2 (18:06→21:17)
[2018-11-03] MEDS: ACETAMINOPHEN 500 MG TAB PO SCH (18:08)
[2018-11-03] MEDS ORDERED: ROSUVASTATIN CALCIUM 10 MG TAB PO SCH (21:00)
[2018-11-03] MEDS ORDERED: DULOXETINE HCL 30 MG CAP PO SCH (21:00)
[2018-11-03] MEDS ORDERED: LANTUS PER UNIT CHARGE SQ ONE ×2 (21:00)
[2018-11-03] MEDS ORDERED: SENNA 8.6 MG TAB PO SCH (21:00)
[2018-11-03] MEDS: DOCUSATE SODIUM 100 MG CAP PO SCH (21:11)
[2018-11-03] MEDS: TRAMADOL HCL 50 MG TABLET PO PRN (23:39)
[2018-11-04] MEDS: ACETAMINOPHEN 500 MG TAB PO SCH ×2 (02:08→11:15)
[2018-11-04] MEDS: INSULIN ASPART 100 UNITS/ML 3 ML PEN SC SCH ×3 (04:03→09:19)
[2018-11-04] MEDS: KETOROLAC TROMETHAMINE 15 MG/ML VIAL IV SCH ×2 (04:06→09:15)
[2018-11-04 07:09] LABS: Basophils # (auto) 0.02 K/uL (0-0.2); Basophils % (auto) 0.2 %; Hematocrit (blood only) 32.3 % (37-47); Hemoglobin 10.7 g/dL (12.0-16.0); Immature Granulocytes # (auto) 0.02 K/uL (0.00-0.02); Immature Granulocytes % (auto) 0.2 %; Lymphocytes % (auto) 9.2 %; Mean Corpuscular Hgb Conc 33.1 g/dL (32-36); Mean Corpuscular Volume 83.2 fL (80-100); Mean Platelet Volume 10.4 fL (7.4-10.4); Monocytes # (auto) 0.84 K/uL (0.11-0.59); Monocytes % (auto) 7.7 %; Neutrophils # (auto) 9.01 K/uL (1.4-6.5); Neutrophils % (auto) 82.7 %; Platelet Count 179 K/uL (130-400); RDW Coefficient of Variation 14.2 % (11.5-14.5); Red Blood Count 3.88 M/uL (4.2-5.4); White Blood Count 10.89 K/uL (4.8-10.8)
[2018-11-04 07:35] LABS: BUN Creatinine Ratio 14.5 (10-20); Calcium 9.1 mg/dl (8.5-10.1); Creatinine Clr Calc Pharmacy 57.4 ml/min; Est GFR (African American) 75.5; Est GFR (Non-African American) 65.2; Potassium 4.1 mmol/L (3.5-5.1)
[2018-11-04 08:04] LABS: Estimated Average Glucose 126 mg/dl
[2018-11-04] MEDS: TRAMADOL HCL 50 MG TABLET PO PRN (08:06)
[2018-11-04] MEDS: LOSARTAN POTASSIUM 25 MG TAB PO SCH (08:08)
[2018-11-04] MEDS: METFORMIN HCL 500 MG TAB PO SCH (08:08)
[2018-11-04] MEDS: DOCUSATE SODIUM 100 MG CAP PO SCH (08:09)
--- NOTE | 2018-11-04 08:34 | Orthopedic Progress Note ---
Date of Service November 04, 2018 Assessment & Plan (1) Rotator cuff arthropathy of left shoulder: Overall she is doing very well. She is not having any pain in the shoulder. She will be seen by physical therapy today for range of motion exercises. We will continue tramadol for pain. We plan to discharge her to home later this morning. She will use energy physical therapy at discharge. Present on Admission?: Yes Rika Mendez was seen and examined at bedside this morning. Overall she is doing very well. She is not having any pain in the shoulder. She was having a lot of pain in her legs overnight. She has been taking tramadol for the pain. She had no acute events overnight. She has no complaints. Physical Exam Vital Signs (Past 24 Hours): Last Vital Signs Temp 36.9 C 11/04/18 07:00 Pulse 81 11/04/18 07:00 Resp 18 11/04/18 07:00 BP 144/85 H 11/04/18 07:00 Pulse Ox 97 11/04/18 07:00 Musculoskeletal: On physical examination of the left shoulder, the dressing is clean and dry. She is wearing her sling as instructed. She does not have any dorsiflexion of her wrist or extension of her thumb yet because of the nerve block. She still has numbness in her left thumb. Results & Data Laboratory Results H & H 10/24/18 11/04/18 Range/Units 09:29 06:09 Hgb 11.6 L 10.7 L (12.0-16.0) g/dL Hct 36.5 L 32.3 L (37-47) % Coagulation 10/24/18 Range/Units 09:29 INR 1.0 (0.9-1.1) Diagnostic Findings X-rays postoperatively of the left shoulder show the prosthesis to be in anatomic alignment without any evidence of fracture dislocation or loosening
--- NOTE | 2018-11-04 08:36 | Discharge Summary ---
Date of Service November 04, 2018 Admission HPI Per Admitting Provider Vanessa is a pleasant 72-year-old female who I did a right reverse shoulder arthroplasty on in the past. She has done very well with that. Unfortunately she is been dealing with chronic increasing left shoulder pain. I diagnosed her with rotator cuff arthropathy of the left shoulder. I have given her multiple injections. Injections are no longer helping. Her shoulder pain is now unbearable. She has elected to proceed with a reverse left shoulder arthroplasty. Specialty Data Orthopedic H & H 10/24/18 11/04/18 Range/Units 09:29 06:09 Hgb 11.6 L 10.7 L (12.0-16.0) g/dL Hct 36.5 L 32.3 L (37-47) % Coagulation 10/24/18 Range/Units 09:29 INR 1.0 (0.9-1.1) Discharge Data Consultations 11/03/18 14:29 Consult Case Management - Discharge Planning Routine Procedures Performed Operation Date: 11/03/18 11:20 Actual Procedures p Left Reverse Total Shoulder Arthroplasty(Left) - Torsten Celestin DO Hospital Course (1) Rotator cuff arthropathy of left shoulder: On November 03, 2018 Vanessa arrived at [facility] system and underwent a left reverse shoulder arthroplasty without complication. She had a general anesthetic and a left interscalene nerve block. She was then placed in an arm sling and discharged to general orthopedic floors. Her hospital course is uneventful. On postop day #1 her H&H was stable and her pain was well controlled. She was able to participate well with physical therapy doing range of motion exercises. She was then discharged to home with [facility]. She will follow-up with orthopedics in 2 weeks. Discharge Instructions Home Medications Medication Instructions Recorded Confirmed duloxetine 30 mg PO QPM 10/19/18 11/03/18 losartan 25 mg PO QAM 10/19/18 11/03/18 metformin 500 mg PO BIDM 10/19/18 11/03/18 omeprazole 40 mg PO QAM 10/19/18 11/03/18 rosuvastatin [Crestor] 10 mg PO QPM 10/19/18 11/03/18 tramadol 100 mg PO BID PRN 10/19/18 11/03/18 Previous Rx's Medication Instructions Recorded tramadol 50 - 100 mg PO Q4H PRN #40 tab 11/04/18
[2018-11-04] MEDS ORDERED: PANTOprazole 40 MG TAB PO SCH (09:00)
[2018-11-04] MEDS ORDERED: MULTIVITAMIN TAB PO SCH (09:00)
--- NOTE | 2018-11-04 13:01 | Anesthesiology Progress Note ---
Date of Service November 04, 2018 Anesthesia Post Procedure Vital Signs Vital Signs: Temp Pulse Pulse Resp BP Pulse Ox 11/04/18 11:58 98 11/04/18 10:02 36.9 C 81 18 144/85 H 97 11/04/18 07:00 36.9 C 81 18 144/85 H 97 11/04/18 03:55 36.6 C 87 16 135/63 99 11/03/18 23:31 36.9 C 85 16 124/59 L 97 11/03/18 19:10 36.5 C 72 18 134/65 97 11/03/18 17:28 36.3 C L 60 18 136/71 98 11/03/18 15:59 36.3 C L 57 L 16 126/80 97 11/03/18 15:18 36.4 C L 61 18 110/63 95 11/03/18 14:59 59 L 18 107/57 L 94 11/03/18 14:15 36.4 C L 57 L 16 133/69 98 11/03/18 14:05 36.4 C L 55 L 16 137/58 L 99 11/03/18 13:55 62 16 136/61 100 11/03/18 13:45 66 18 128/61 100 11/03/18 13:36 36.0 C L 74 14 129/46 L 100 Pain Intensity Left Shoulder: Pain Intensity: 0 Bilateral Leg: Pain Intensity: 3 Notes Mental Status: alert / awake / arousable and participated in evaluation Patient Amnestic to Procedure: Yes Nausea / Vomiting: adequately controlled Pain: adequately controlled Airway Patency, RR, SpO2: stable & adequate BP & HR: stable & adequate Hydration State: stable & adequate Anesthetic Complications: no major complications apparent and Pt Satisfied with anesthetic care
== END 2018-11-04 11:36 | disposition home or self-care (01) | DRG 483 ==
LOC: ASU 08:44 → 3E 13:40